=== PATIENT | female | born 1955 | race Caucasian/White ===

== ENCOUNTER → 2016-11-23 | Outpatient (CLI) | payer OTHER ==
[~2016-11-23] MED LIST: HUMIRA20 MG/0.4; LISINOPRIL10 MG; NAPROSYN500 MG PO; NORCO 5-325 TA1 EAC1 PO; PRAVASTATIN SOD20 MG; ZYRTEC10 M5
== END ==
LOC: HYPER 11-22 14:41
DX: T81.4XXD Infection following a procedure, subsequent encounter (principal); E11.622 Type 2 diabetes mellitus with other skin ulcer; L97.322 Non-pressure chronic ulcer of left ankle with fat layer exposed; E66.01 Morbid (severe) obesity due to excess calories; M19.072 Primary osteoarthritis, left ankle and foot; M19.071 Primary osteoarthritis, right ankle and foot; D17.9 Benign lipomatous neoplasm, unspecified; K21.9 Gastro-esophageal reflux disease without esophagitis; E78.5 Hyperlipidemia, unspecified; Z90.710 Acquired absence of both cervix and uterus; Y83.8 Other surgical procedures as the cause of abnormal reaction of the patient, or of later complication, without mention of misadventure at the time of the procedure